=== PATIENT | male | born 1985 | race Caucasian/White ===

== ENCOUNTER 2018-04-07 22:56 | Emergency (ER) | payer MEDICAID ==
[~2018-04-07] VITALS: Ht 177.8 cm; Wt 88.5 kg
--- NOTE | 2018-04-07 23:10 | NUR ---
BIB [id number] FROM [facility]. PER EMS, [facility] STAFF STATED PT HAS "HIGH BP OF 182/106 W/ A HR 120". PT STATES HES +ETOH AND DID METH EARLIER TODAY. PT DENIES -SI/-HI. NO S/S OF ACUTE DISTRESS NOTED. RR EVEN AND UNLABORED. PT PLACED ON MONITOR AND POX. PT SAFETY AND COMFORT MEASURES IN PLACE.
--- NOTE | 2018-04-07 23:20 | NUR ---
URINE SAMPLE COLLECTED
--- NOTE | 2018-04-07 23:22 | NUR ---
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
[2018-04-07 23:34] LABS: BASOPHILS # (AUTO) 0.1 /CMM (0.0-0.2); EOSINOPHILS % (AUTO) 0.3 % (0.0-6.0); HEMATOCRIT 45 % (39-51); HEMOGLOBIN 14.8 g/dL (13.5-17.5); LYMPHOCYTES # (AUTO) 1.9 /CMM (0.8-4.8); LYMPHOCYTES % (AUTO) 27.9 % (20.0-44.0); MEAN CORPUSCULAR HGB CONC 33 g/dl (31.0-36.0); MEAN CORPUSCULAR VOLUME 91 fL (80-96); MONOCYTES # (AUTO) 0.8 /CMM (0.1-1.30); MONOCYTES % (AUTO) 11.6 % (2.0-12.0); NEUTROPHILS % (AUTO) 59.2 % (43.0-81.0); PLATELET COUNT (AUTO) 233 /CMM (150-450); RED BLOOD CELL COUNT(AUTO) 4.88 MIL/uL (4.5-6.0); WHITE BLOOD COUNT (AUTO) 6.7 K/uL (4.3-11.0)
[2018-04-07 23:38] LABS: APPEARANCE,URINE CLEAR (CLEAR); BILIRUBIN,URINE NEGATIVE (NEGATIVE); BLOOD, URINE 1+ Ery/uL (NEGATIVE); COLOR,URINE YELLOW (YELLOW); KETONES,URINE NEGATIVE (NEGATIVE); LEUKOCYTE ESTERASE ,URINE NEGATIVE (NEGATIVE); NITRITE, URINE NEGATIVE (NEGATIVE); PH,URINE 7.5 (5.0-8.0); PROTEIN,URINE 2+ mg/dl (NEGATIVE); UGLUCOSE NEGATIVE (NEGATIVE); UROBILINOGEN,URINE 0.2 EU/dL (0.2)
[2018-04-07 23:42] LABS: CALCIUM, SERUM 8.5 mg/dL (8.5-10.1); CREATININE 0.8 mg/dL (0.6-1.3); POTASSIUM 3.7 mmol/L (3.5-5.1)
[2018-04-07 23:48] LABS: ALBUMIN 3.7 g/dL (3.4-5.0); BILIRUBIN,DIRECT 0.1 mg/dL (0.0-0.2); BILIRUBIN,TOTAL 0.3 mg/dL (0.2-1.0); TOTAL PROTEIN, SERUM 7.7 g/dL (6.4-8.2)
[2018-04-07 23:49] LABS: SALICYLATE 1.3 mg/dL (2.8-20.0)
[2018-04-07 23:51] LABS: BACTERIA,URINE None seen /HPF (None Seen); WBC,URINE 0-2 /HPF (0-3)
[2018-04-07 23:52] LABS: SPERM,URINE Few /HPF (None Seen); SQUAMOUS EPITHELIAL CELL,UR Few /HPF (None Seen)
--- NOTE | 2018-04-08 00:31 | NUR ---
PT STATES + SI WITH PLAN TO RUN INTO TRAFFIC. -HI
--- NOTE | 2018-04-08 00:31 | NUR ---
SI PRECAUTIONS IN PLACE. PT SAFETY MEASURES IN PLACE. WILL CONTINUE TO MONITOR PT.
--- NOTE | 2018-04-08 00:32 | NUR ---
REPORT GIVEN TO ROSALINE MO AT [facility]
--- NOTE | 2018-04-08 00:33 | NUR ---
PT ACCEPTED TO [facility] BY ROSAL[facility].
--- NOTE | 2018-04-08 00:36 | NUR ---
[facility] CALLED FOR TRANSPORT. ETA 1HR. TRIP#[id number]
--- NOTE | 2018-04-08 00:59 | NUR ---
Patient is resting comfortably in bed with eyes closed. Easily aroused. No S/S of distress noted. Will continue to monitor pt for safety.
[2018-04-08 02:12] VITALS: BP 145/92
--- NOTE | 2018-04-08 02:13 | NUR ---
REPORT GIVEN TO [facility]. PT BEING TRANSFERRED ONTO [facility]. NO S/S OF DISTRESS NOTED UPON TRANSFER TO [facility].
== END 2018-04-08 02:15 ==
LOC: ER 23:01
DX: F32.9 Major depressive disorder, single episode, unspecified (principal); F10.10 Alcohol abuse, uncomplicated; F41.9 Anxiety disorder, unspecified; F20.9 Schizophrenia, unspecified; Y90.6 Blood alcohol level of 120-199 mg/100 ml
CPT/HCPCS: 36415; 80048; 80076; 80305; 80329; 81001; 85025; 99285; A4606; G0480 ×2; Z7610; 81000-TC